=== PATIENT | female | born 1995 | race Two or more races ===

== ENCOUNTER 2019-04-04 19:51 | Observation (INO) | payer OTHER ==
[2019-04-04] MEDS ORDERED: Sodium Chloride 0.9% 10 ML Syringe FLUSH PRN (20:07)
[2019-04-04] MEDS ORDERED: Sodium Chloride 0.9% 2.5 ML Syringe FLUSH PRN (20:07)
[2019-04-04] MEDS ORDERED: Ondansetron 4 MG/2 ML SDV ONE (20:16)
--- NOTE | 2019-04-04 20:17 | EDM.PDOC ---
ED HPI GENERAL MEDICAL PROBLEM - General Chief Complaint: Gastrointestinal Problem Stated Complaint: PT HAS STOMACH PAIN Time Seen by Provider: 04/04/19 20:08 History Limitations: Reports: No Limitations - History of Present Illness INITIAL COMMENTS - FREE TEXT/NARRATIVE: HISTORY AND PHYSICAL: History of present illness: Patient is a 23-year-old female presents to the ED with complaint of vomiting and diarrhea. She states it started at 1pm this afternoon. She states has numerous episodes of non bloody emesis and diarrhea. She states prior to this starting she started having mid abdominal pain. She denies dysuria, hematuria, back pain. She also reports cough, sore throat, runny nose. She denies past medical or surgical history. LMP 03/31/19. Review of systems: As per history of present illness and below otherwise all systems reviewed and negative. Past medical history: As per history of present illness and as reviewed below otherwise noncontributory. Surgical history: As per history of present illness and as reviewed below otherwise noncontributory. Social history: No reported history of drug or alcohol abuse. Family history: As per history of present illness and as reviewed below otherwise noncontributory. Physical exam: General: Patient sitting comfortably in no acute distress and nontoxic appearing HEENT: Atraumatic, normocephalic, pupils reactive, negative for conjunctival pallor or scleral icterus, mucous membranes moist, throat clear, neck supple, nontender, trachea midline. No meningeal signs. Lungs: Clear to auscultation, breath sounds equal bilaterally, chest nontender. Heart: S1S2, regular, negative for clicks, rubs, or overt murmur. Abdomen: Mild periumbilical tenderness to palpation. Soft, nondistended. Negative for masses or hepatosplenomegaly. Negative for costovertebral tenderness. No rigidity, rebound, guarding. Pelvis: Stable nontender. Genitourinary: Deferred. Rectal: Deferred. Extremities: Atraumatic, negative for cords or calf pain. Neurovascular unremarkable. Neuro: Awake, alert, oriented. Cranial nerves II through XII unremarkable. Cerebellum unremarkable. Motor and sensory unremarkable throughout. Exam nonfocal. Notes: Discussed with Dr. Santos, he advised patient be admitted to medicine with surgery consult for colitis. Diagnostics: CBC, CMP, UA, urine hcg, lipase, CT abdomen/pelvis Therapeutics: 1L NS IV 4mg Zofran IV x 2 Levaquin IV Flagyl IV Prescriptions: Impression: Colitis, abdominal pain Plan: Discussed with Dr. Garcia, patient will be admitted to observation on IV antibiotics. Definitive disposition and diagnosis as appropriate pending reevaluation and review of above. Abdomen Pain Score (Numeric/FACES): 8 - Related Data Allergies Allergy/AdvReac Type Severity Reaction Status Date / Time No Known Allergies Allergy Verified 04/04/19 20:00 Home Meds: Home Meds . [No Known Home Meds] 04/04/19 [History] Past Medical History - Past Health History Medical/Surgical History: Denies Medical/Surgical History - Infectious Disease History Infectious Disease History: Reports: Chicken Pox Social & Family History - Family History Family Medical History: Noncontributory - Tobacco Use Smoking Status *Q: Never Smoker - Caffeine Use Caffeine Use: Reports: Coffee, Energy Drinks, Soda, Tea - Recreational Drug Use Recreational Drug Use: No ED ROS GENERAL - Review of Systems Review Of Systems: ROS reveals no pertinent complaints other than HPI. ED EXAM, GI/ABD - Physical Exam Exam: See Below (see dictation) Course - Vital Signs Last Recorded V/S: Last Vital Signs Temp 97.9 F 04/04/19 20:01 Pulse 118 H 04/04/19 22:00 Resp 16 04/04/19 22:00 BP 115/80 04/04/19 22:00 Pulse Ox 97 04/04/19 22:00 - Orders/Labs/Meds Orders: Active Orders 24 hr Category Date Time Status Sodium Chloride 0.9% [Saline Flush] Med 04/04/19 20:07 Active 10 ml FLUSH ASDIRECTED PRN Sodium Chloride 0.9% [Saline Flush] Med 04/04/19 20:07 Active 2.5 ml FLUSH ASDIRECTED PRN Saline Lock Insert [OM.PC] Stat Oth 04/04/19 20:07 Ordered Medication Orders Sodium Chloride (Saline Flush) 10 ml FLUSH ASDIRECTED PRN PRN Reason: Keep Vein Open Sodium Chloride (Saline Flush) 2.5 ml FLUSH ASDIRECTED PRN PRN Reason: Keep Vein Open Labs: Laboratory Tests 04/04/19 04/04/19 04/04/19 Range/Units 20:15 20:15 20:45 WBC 15.17 H (4.0-11.0) K/uL RBC 5.10 (4.30-5.90) M/uL Hgb 15.4 (12.0-16.0) g/dL Hct 45.9 (36.0-46.0) % MCV 90.0 (80.0-98.0) fL MCH 30.2 (27.0-32.0) pg MCHC 33.6 (31.0-37.0) g/dL RDW Std Deviation 46.8 (28.0-62.0) fl RDW Coeff of Emmanuelle 14 (11.0-15.0) % Plt Count 262 (150-400) K/uL MPV 9.70 (7.40-12.00) fL Neut % (Auto) 92.8 H (48.0-80.0) % Lymph % (Auto) 3.3 L (16.0-40.0) % Howell % (Auto) 2.6 (0.0-15.0) % Eos % (Auto) 1.2 (0.0-7.0) % Baso % (Auto) 0.1 (0.0-1.5) % Neut # (Auto) 14.1 H (1.4-5.7) K/uL Lymph # (Auto) 0.5 L (0.6-2.4) K/uL Howell # (Auto) 0.4 (0.0-0.8) K/uL Eos # (Auto) 0.2 (0.0-0.7) K/uL Baso # (Auto) 0.0 (0.0-0.1) K/uL Nucleated RBC % 0.0 /100WBC Nucleated RBCs # 0 K/uL Sodium 142 (136-145) mmol/L Potassium 4.3 (3.5-5.1) mmol/L Chloride 104 (98-107) mmol/L Carbon Dioxide 25.7 (21.0-32.0) mmol/L BUN 20 H (7.0-18.0) mg/dL Creatinine 1.0 (0.6-1.0) mg/dL Est Cr Clr Drug Dosing 81.91 mL/min Estimated GFR (MDRD) > 60.0 ml/min Glucose 139 H (74-106) mg/dL Calcium 10.1 (8.5-10.1) mg/dL Total Bilirubin 0.5 (0.2-1.0) mg/dL AST 19 (15-37) IU/L ALT 26 (14-63) IU/L Alkaline Phosphatase 64 (46-116) U/L Total Protein 8.9 H (6.4-8.2) g/dL Albumin 4.6 (3.4-5.0) g/dL Globulin 4.3 H (2.6-4.0) g/dL Albumin/Globulin Ratio 1.1 (0.9-1.6) Lipase 126 (73-393) U/L Urine Color YELLOW Urine Appearance SLT CLOUDY Urine pH 6.0 (5.0-8.0) Ur Specific [place] >= 1.030 (1.001-1.035) Urine Protein TRACE H (NEGATIVE) mg/dL Urine Glucose (UA) NEGATIVE (NEGATIVE) mg/dL Urine Ketones NEGATIVE (NEGATIVE) mg/dL Urine Occult Blood TRACE-INTACT H (NEGATIVE) Urine Nitrite NEGATIVE (NEGATIVE) Urine Bilirubin NEGATIVE (NEGATIVE) Urine Urobilinogen 0.2 (<2.0) EU/dL Ur Leukocyte Esterase NEGATIVE (NEGATIVE) Urine RBC 0-2 (0-2/HPF) Urine WBC 1-3 (0-5/HPF) Ur Epithelial Cells MANY (NONE-FEW) Urine Bacteria RARE (NEGATIVE) Urine Mucus HEAVY (NONE-MOD) Urine HCG, Qual (NEGATIVE) 04/04/19 Range/Units 20:45 WBC (4.0-11.0) K/uL RBC (4.30-5.90) M/uL Hgb (12.0-16.0) g/dL Hct (36.0-46.0) % MCV (80.0-98.0) fL MCH (27.0-32.0) pg MCHC (31.0-37.0) g/dL RDW Std Deviation (28.0-62.0) fl RDW Coeff of Emmanuelle (11.0-15.0) % Plt Count (150-400) K/uL MPV (7.40-12.00) fL Neut % (Auto) (48.0-80.0) % Lymph % (Auto) (16.0-40.0) % Howell % (Auto) (0.0-15.0) % Eos % (Auto) (0.0-7.0) % Baso % (Auto) (0.0-1.5) % Neut # (Auto) (1.4-5.7) K/uL Lymph # (Auto) (0.6-2.4) K/uL Howell # (Auto) (0.0-0.8) K/uL Eos # (Auto) (0.0-0.7) K/uL Baso # (Auto) (0.0-0.1) K/uL Nucleated RBC % /100WBC Nucleated RBCs # K/uL Sodium (136-145) mmol/L Potassium (3.5-5.1) mmol/L Chloride (98-107) mmol/L Carbon Dioxide (21.0-32.0) mmol/L BUN (7.0-18.0) mg/dL Creatinine (0.6-1.0) mg/dL Est Cr Clr Drug Dosing mL/min Estimated GFR (MDRD) ml/min Glucose (74-106) mg/dL Calcium (8.5-10.1) mg/dL Total Bilirubin (0.2-1.0) mg/dL AST (15-37) IU/L ALT (14-63) IU/L Alkaline Phosphatase (46-116) U/L Total Protein (6.4-8.2) g/dL Albumin (3.4-5.0) g/dL Globulin (2.6-4.0) g/dL Albumin/Globulin Ratio (0.9-1.6) Lipase (73-393) U/L Urine Color Urine Appearance Urine pH (5.0-8.0) Ur Specific [place] (1.001-1.035) Urine Protein (NEGATIVE) mg/dL Urine Glucose (UA) (NEGATIVE) mg/dL Urine Ketones (NEGATIVE) mg/dL Urine Occult Blood (NEGATIVE) Urine Nitrite (NEGATIVE) Urine Bilirubin (NEGATIVE) Urine Urobilinogen (<2.0) EU/dL Ur Leukocyte Esterase (NEGATIVE) Urine RBC (0-2/HPF) Urine WBC (0-5/HPF) Ur Epithelial Cells (NONE-FEW) Urine Bacteria (NEGATIVE) Urine Mucus (NONE-MOD) Urine HCG, Qual NEGATIVE (NEGATIVE) Meds: Medications Generic Name Dose Route Start Last Admin Trade Name Freq PRN Reason Stop Dose Admin Sodium Chloride 10 ml 09/14/19 20:07 Saline Flush FLUSH ASDIRECTED PRN Keep Vein Open Sodium Chloride 2.5 ml 04/04/19 20:07 Saline Flush FLUSH ASDIRECTED PRN Keep Vein Open Discontinued Medications Generic Name Dose Route Start Last Admin Trade Name Marvin PRN Reason Stop Dose Admin Sodium Chloride 1,000 mls @ 999 mls/hr 04/04/19 20:46 04/04/19 20:15 Normal Saline IV 04/04/19 21:46 999 mls/hr .BOLUS ONE Administration Iopamidol 94 ml 04/04/19 21:38 04/04/19 21:39 Isovue Multipack-370 (76%) IVPUSH 04/04/19 21:39 94 ml ONETIME ONE Administration Ondansetron HCl Confirm 04/04/19 20:16 04/04/19 20:49 Zofran Administered 04/04/19 20:17 Not Given Dose 4 mg .ROUTE .STK-MED ONE Ondansetron HCl 4 mg 04/04/19 20:46 04/04/19 20:15 Zofran IVPUSH 04/04/19 20:47 4 mg ONETIME ONE Administration Ondansetron HCl 4 mg 04/04/19 22:08 04/04/19 22:21 Zofran IVPUSH 04/04/19 22:09 4 mg ONETIME ONE Administration Departure - Departure Time of Disposition: 22:47 Disposition: Refer to Observation Condition: Good Clinical Impression: Colitis, Abdominal pain - Discharge Information Referrals: PCP,None [Primary Care Provider] - Forms: ED Department Discharge - My Orders Last 24 Hours: My Active Orders 04/04/19 20:07 Sodium Chloride 0.9% [Saline Flush] 10 ml FLUSH ASDIRECTED PRN Sodium Chloride 0.9% [Saline Flush] 2.5 ml FLUSH ASDIRECTED PRN Saline Lock Insert [OM.PC] Stat - Assessment/Plan Last 24 Hours: My Active Orders 04/04/19 20:07 Sodium Chloride 0.9% [Saline Flush] 10 ml FLUSH ASDIRECTED PRN Sodium Chloride 0.9% [Saline Flush] 2.5 ml FLUSH ASDIRECTED PRN Saline Lock Insert [OM.PC] Stat
[2019-04-04] MEDS ORDERED: Sodium Chloride 0.9% 1,000 ML IV ONE (20:46)
[2019-04-04] MEDS ORDERED: Ondansetron 4 MG/2 ML SDV IVPUSH ONE ×2 (20:46→22:08)
[2019-04-04 20:50] LABS: BLOOD UREA NITROGEN,BUN 20 mg/dL (7.0-18.0); CARBON DIOXIDE,CO2 25.7 mmol/L (21.0-32.0); CHLORIDE,CL 104 mmol/L (98-107); GLUCOSE RANDOM 139 mg/dL (74-106); LIPASE 126 U/L (73-393); POTASSIUM,K 4.3 mmol/L (3.5-5.1); SODIUM,NA 142 mmol/L (136-145)
[2019-04-04] MEDS ORDERED: Iopamidol 755 MG/ML 500 ML Multipack Bottle IVPUSH ONE (21:38)
--- NOTE | 2019-04-04 22:33 | CT ---
HISTORY: Abdominal pain. Vomiting. TECHNIQUE: CT abdomen and pelvis with IV contrast. COMPARISON: None. FINDINGS: Abdomen: No liver lesions. No bile duct dilation. No pancreatic mass or pancreatic duct dilation. No spleen lesions. No adrenal nodules. Kidneys enhance symmetrically. No renal mass. No hydronephrosis. No dilated bowel. Possible wall thickening of the mid transverse colon over approximately 6 cm segment. No pericolonic inflammatory change. No free fluid. Appendix is normal. No lymphadenopathy. Abdominal aorta is normal caliber. Pelvis: No lymphadenopathy. Musculoskeletal: Unremarkable. Lower chest: Unremarkable. IMPRESSION: 1. Possible segmental wall thickening of the transverse colon versus artifactual appearance due to under distention. No pericolonic inflammatory change. Correlate with bowel symptoms and consider follow-up CT with IV and oral contrast. 2. No acute abnormality in the abdomen or pelvis otherwise. 3. This report agrees with the preliminary report. Please note that all CT scans at this facility use dose modulation, iterative reconstruction, and/or weight-based dosing when appropriate to reduce radiation dose to as low as reasonably achievable. Dictated by Michele Valentine MD @ Apr 07 2019 10:16AM Signed by Dr. Michele Valentine @ Apr 07 2019 10:24AM
[2019-04-04] MEDS ORDERED: Levofloxacin/Dextrose 5%-Water 750 MG in Premix Bag 1 BAG IV ONE (22:47)
[2019-04-04] MEDS ORDERED: metroNIDAZOLE/Normal Saline 500 MG in Premix Bag 1 BAG IV ONE (22:48)
[2019-04-05] MEDS ORDERED: Ondansetron 4 MG/2 ML SDV IVPUSH PRN (00:05)
[2019-04-05] MEDS ORDERED: Ondansetron 4 MG/2 ML SDV ONE (00:16)
[2019-04-05] MEDS: Sodium Chloride 0.9% 1,000 ML IV SCH ×2 (03:36→10:29)
[2019-04-05 06:14] LABS: BLOOD UREA NITROGEN,BUN 17 mg/dL (7.0-18.0); CARBON DIOXIDE,CO2 22.2 mmol/L (21.0-32.0); CHLORIDE,CL 105 mmol/L (98-107); GLUCOSE RANDOM 124 mg/dL (74-106); POTASSIUM,K 3.3 mmol/L (3.5-5.1); SODIUM,NA 140 mmol/L (136-145)
[2019-04-05] MEDS: metroNIDAZOLE/Normal Saline 500 MG in Premix Bag 1 BAG IV SCH ×2 (09:28→13:41)
--- NOTE | 2019-04-05 11:27 | PCM.SN ---
- Free Text/Narrative Note: pt seen, chart reviewed; resolving colitis; would recommend a total of 7 days abx treatment, fu w primary care provider 1 - 2 wks; and colonoscopy w bx in 2 months; as always, thanks for the consult and care of this pleasant patient; [id number]
--- NOTE | 2019-04-05 11:51 | PCM.HP.2 ---
H&P History of Present Illness - General Date of Service: 04/05/19 Admit Problem/Dx: Admission Diagnosis/Problem Admission Diagnosis/Problem Colitis - History of Present Illness Initial Comments - Free Text/Narative: The patient is a 23 year-old female who presented with nausea, vomiting and diarrhea that started yesterday afternoon. The patient was reporting nonbloody , nonbilious vomiting and nonbloody diarrhea. This morning she reports she no longer has nausea, vomiting, diarrhea or abdominal pain. She was concerned because she had been eating farm food (eggs and pork) at her sister's. She reports her sister and nephew also have vomiting. She denies any fever, chills , chest pain, shortness of breath. In the ER, lab work showed an elevated white count of 15, no anemia, and lipase within normal limits. A CMP did not have any significant abnormalities. CT abdomen and pelvis showed thickened transverse colon. She started on Levaquin, Flagyl, Zofran and IV fluids in the ER. Abdomen Pain Score (Numeric/FACES): 8 - Related Data Allergies/Adverse Reactions: Allergies Allergy/AdvReac Type Severity Reaction Status Date / Time No Known Allergies Allergy Verified 04/05/19 01:14 Home Medications: Home Meds Levofloxacin [Levaquin] 750 mg PO DAILY 7 Days #7 tablet 04/05/19 [Rx] metroNIDAZOLE [Flagyl] 500 mg PO Q8H 7 Days #21 tab 04/05/19 [Rx] Past Medical History - Past Health History Medical/Surgical History: Denies Medical/Surgical History [facility] History: Reports: - Infectious Disease History Infectious Disease History: Reports: Chicken Pox Social & Family History - Family History Family Medical History: Noncontributory - Tobacco Use Smoking Status *Q: Never Smoker Second Hand Smoke Exposure: No - Caffeine Use Caffeine Use: Reports: Coffee, Energy Drinks, Soda - Recreational Drug Use Recreational Drug Use: No H&P Review of Systems - Review of Systems: Review Of Systems: See Below General: Reports: No Symptoms HEENT: Reports: No Symptoms Pulmonary: Reports: No Symptoms Cardiovascular: Reports: No Symptoms Gastrointestinal: Reports: Diarrhea, Nausea, Vomiting Genitourinary: Reports: No Symptoms Musculoskeletal: Reports: No Symptoms Skin: Reports: No Symptoms Psychiatric: Reports: No Symptoms Neurological: Reports: No Symptoms Hematologic/Lymphatic: Reports: No Symptoms Immunologic: Reports: No Symptoms Exam - Exam Exam: See Below - Vital Signs Vital Signs: Last Vital Signs Temp 98.7 F 04/05/19 08:00 Pulse 113 H 04/05/19 08:00 Resp 16 04/05/19 08:00 BP 98/52 L 04/05/19 08:00 Pulse Ox 95 04/05/19 08:00 Weight: 77.111 kg - Exam General: Alert, Oriented, Cooperative HEENT: Conjunctiva Clear, EOMI, Mucosa Moist & [place], Posterior Pharynx Clear, Pupils Equal, Pupils Reactive Lungs: Clear to Auscultation, Normal Respiratory Effort Cardiovascular: Regular Rate, Regular Rhythm GI/Abdominal Exam: Normal Bowel Sounds, Soft, Non-Tender, No Distention Extremities: No Pedal Edema Skin: Warm, Dry, Intact Neurological: Cranial Nerves Intact Neuro Extensive - Mental Status: Alert, Oriented x3 Psychiatric: Alert, Normal Affect, Normal Mood - Patient Data Lab Results Last 24 hrs: Laboratory Results - last 24 hr 04/04/19 04/04/19 04/04/19 Range/Units 20:15 20:15 20:45 WBC 15.17 H (4.0-11.0) K/uL RBC 5.10 (4.30-5.90) M/uL Hgb 15.4 (12.0-16.0) g/dL Hct 45.9 (36.0-46.0) % MCV 90.0 (80.0-98.0) fL MCH 30.2 (27.0-32.0) pg MCHC 33.6 (31.0-37.0) g/dL RDW Std Deviation 46.8 (28.0-62.0) fl RDW Coeff of Emmanuelle 14 (11.0-15.0) % Plt Count 262 (150-400) K/uL MPV 9.70 (7.40-12.00) fL Neut % (Auto) 92.8 H (48.0-80.0) % Lymph % (Auto) 3.3 L (16.0-40.0) % Jack % (Auto) 2.6 (0.0-15.0) % Eos % (Auto) 1.2 (0.0-7.0) % Baso % (Auto) 0.1 (0.0-1.5) % Neut # (Auto) 14.1 H (1.4-5.7) K/uL Lymph # (Auto) 0.5 L (0.6-2.4) K/uL Jack # (Auto) 0.4 (0.0-0.8) K/uL Eos # (Auto) 0.2 (0.0-0.7) K/uL Baso # (Auto) 0.0 (0.0-0.1) K/uL Nucleated RBC % 0.0 /100WBC Nucleated RBCs # 0 K/uL Sodium 142 (136-145) mmol/L Potassium 4.3 (3.5-5.1) mmol/L Chloride 104 (98-107) mmol/L Carbon Dioxide 25.7 (21.0-32.0) mmol/L BUN 20 H (7.0-18.0) mg/dL Creatinine 1.0 (0.6-1.0) mg/dL Est Cr Clr Drug Dosing 81.91 mL/min Estimated GFR (MDRD) > 60.0 ml/min Glucose 139 H (74-106) mg/dL Calcium 10.1 (8.5-10.1) mg/dL Total Bilirubin 0.5 (0.2-1.0) mg/dL AST 19 (15-37) IU/L ALT 26 (14-63) IU/L Alkaline Phosphatase 64 (46-116) U/L Total Protein 8.9 H (6.4-8.2) g/dL Albumin 4.6 (3.4-5.0) g/dL Globulin 4.3 H (2.6-4.0) g/dL Albumin/Globulin Ratio 1.1 (0.9-1.6) Lipase 126 (73-393) U/L Urine Color YELLOW Urine Appearance SLT CLOUDY Urine pH 6.0 (5.0-8.0) Ur Specific [place] >= 1.030 (1.001-1.035) Urine Protein TRACE H (NEGATIVE) mg/dL Urine Glucose (UA) NEGATIVE (NEGATIVE) mg/dL Urine Ketones NEGATIVE (NEGATIVE) mg/dL Urine Occult Blood TRACE-INTACT H (NEGATIVE) Urine Nitrite NEGATIVE (NEGATIVE) Urine Bilirubin NEGATIVE (NEGATIVE) Urine Urobilinogen 0.2 (<2.0) EU/dL Ur Leukocyte Esterase NEGATIVE (NEGATIVE) Urine RBC 0-2 (0-2/HPF) Urine WBC 1-3 (0-5/HPF) Ur Epithelial Cells MANY (NONE-FEW) Urine Bacteria RARE (NEGATIVE) Urine Mucus HEAVY (NONE-MOD) Urine HCG, Qual (NEGATIVE) 04/04/19 04/05/19 04/05/19 Range/Units 20:45 05:25 05:25 WBC 10.33 (4.0-11.0) K/uL RBC 4.37 (4.30-5.90) M/uL Hgb 12.9 (12.0-16.0) g/dL Hct 39.5 (36.0-46.0) % MCV 90.4 (80.0-98.0) fL MCH 29.5 (27.0-32.0) pg MCHC 32.7 (31.0-37.0) g/dL RDW Std Deviation 48.0 (28.0-62.0) fl RDW Coeff of Emmanuelle 15 (11.0-15.0) % Plt Count 238 (150-400) K/uL MPV 9.80 (7.40-12.00) fL Neut % (Auto) 94.5 H (48.0-80.0) % Lymph % (Auto) 3.1 L (16.0-40.0) % Jack % (Auto) 2.3 (0.0-15.0) % Eos % (Auto) 0.0 (0.0-7.0) % Baso % (Auto) 0.1 (0.0-1.5) % Neut # (Auto) 9.8 H (1.4-5.7) K/uL Lymph # (Auto) 0.3 L (0.6-2.4) K/uL Jack # (Auto) 0.2 (0.0-0.8) K/uL Eos # (Auto) 0.0 (0.0-0.7) K/uL Baso # (Auto) 0.0 (0.0-0.1) K/uL Nucleated RBC % 0.0 /100WBC Nucleated RBCs # 0 K/uL Sodium 140 (136-145) mmol/L Potassium 3.3 L (3.5-5.1) mmol/L Chloride 105 (98-107) mmol/L Carbon Dioxide 22.2 (21.0-32.0) mmol/L BUN 17 (7.0-18.0) mg/dL Creatinine 0.8 (0.6-1.0) mg/dL Est Cr Clr Drug Dosing 102.94 mL/min Estimated GFR (MDRD) > 60.0 ml/min Glucose 124 H (74-106) mg/dL Calcium 8.2 L (8.5-10.1) mg/dL Total Bilirubin 0.7 (0.2-1.0) mg/dL AST 14 L (15-37) IU/L ALT 19 (14-63) IU/L Alkaline Phosphatase 46 (46-116) U/L Total Protein 6.7 (6.4-8.2) g/dL Albumin 3.3 L (3.4-5.0) g/dL Globulin 3.4 (2.6-4.0) g/dL Albumin/Globulin Ratio 1.0 (0.9-1.6) Lipase (73-393) U/L Urine Color Urine Appearance Urine pH (5.0-8.0) Ur Specific [place] (1.001-1.035) Urine Protein (NEGATIVE) mg/dL Urine Glucose (UA) (NEGATIVE) mg/dL Urine Ketones (NEGATIVE) mg/dL Urine Occult Blood (NEGATIVE) Urine Nitrite (NEGATIVE) Urine Bilirubin (NEGATIVE) Urine Urobilinogen (<2.0) EU/dL Ur Leukocyte Esterase (NEGATIVE) Urine RBC (0-2/HPF) Urine WBC (0-5/HPF) Ur Epithelial Cells (NONE-FEW) Urine Bacteria (NEGATIVE) Urine Mucus (NONE-MOD) Urine HCG, Qual NEGATIVE (NEGATIVE) Result Diagrams: 04/05/19 05:25 04/05/19 05:25 Problem List Initiated/Reviewed/Updated: Yes Orders Last 24hrs: Active Orders 24 hr Category Date Time Status Admission Status [Patient Status] [ADT] Stat ADT 04/04/19 22:50 Active Intake and Output [RC] ASDIRECTED Care 04/05/19 10:27 Active Telemetry Monitoring [Cardiac Monitoring] [RC] Q8H Care 04/05/19 07:41 Active Vital Signs [RC] PER UNIT ROUTINE Care 04/05/19 10:27 Active Advance Diet Instructions [DIET] Diet 04/05/19 Lunch Active CDIFF TOX A+B [OP] Routine Lab 04/05/19 10:27 Ordered CULTURE STOOL + CAMPY+SHIGATOX [RM] Routine Lab 04/05/19 10:27 Ordered Levofloxacin/Dextrose 5%-Water [Levaquin in D5W 750 MG/ Med 04/05/19 21:00 Active 150 ML] 750 mg Premix Bag 1 bag IV Q24H Ondansetron [Zofran] Med 04/05/19 00:05 Active 4 mg IVPUSH Q4H PRN Sodium Chloride 0.9% [Normal Saline] 1,000 ml Med 04/05/19 00:15 Active IV ASDIRECTED Sodium Chloride 0.9% [Saline Flush] Med 04/04/19 20:07 Active 10 ml FLUSH ASDIRECTED PRN Sodium Chloride 0.9% [Saline Flush] Med 04/04/19 20:07 Active 2.5 ml FLUSH ASDIRECTED PRN metroNIDAZOLE/Normal Saline [Flagyl 500 MG in NS 100 ML Med 04/05/19 08:00 Active ] 500 mg Premix Bag 1 bag IV Q6H Isolation [COMM] Stat Oth 04/05/19 10:27 Ordered Saline Lock Insert [OM.PC] Stat Oth 04/04/19 20:07 Ordered Resuscitation Status Routine Resus Stat 04/05/19 10:27 Ordered Medication Orders Levofloxacin/Dextrose 750 mg/ (Premix) 150 mls @ 100 mls/hr IV Q24H [place] Metronidazole 500 mg/ Premix 100 mls @ 100 mls/hr IV Q6H [place] Last Admin: 04/05/19 09:28 Dose: 100 mls/hr Sodium Chloride (Normal Saline) 1,000 mls @ 125 mls/hr IV ASDIRECTED [place] Last Admin: 04/05/19 10:29 Dose: 125 mls/hr Infusion: 04/05/19 10:29 Dose: 125 mls/hr Admin: 04/05/19 03:36 Dose: 125 mls/hr Ondansetron HCl (Zofran) 4 mg IVPUSH Q4H PRN PRN Reason: Nausea Last Admin: 04/05/19 00:21 Dose: 4 mg Sodium Chloride (Saline Flush) 10 ml FLUSH ASDIRECTED PRN PRN Reason: Keep Vein Open Sodium Chloride (Saline Flush) 2.5 ml FLUSH ASDIRECTED PRN PRN Reason: Keep Vein Open Assessment/Plan Comment:: 1. Admit for observation 2. Code status- full 3. Vitals per routine 4. I/Os per routine 5. Diet- clear and advance as tolerated 6. DVT prophylaxis with SCD 7. Colitis- continue Levaquin and Flagyl, Continue IVF, advance diet as tolerated, stool studies if another episode of diarrhea. Was evaluated by general surgeon, who recommended discharge 7 day course of Levaquin and Flagyl with PCP follow up in 1-2 weeks and outpatient colonoscopy in 6 weeks time. 8. Tachycardia- likely secondary to dehydration- monitor on telemetry 9. Hypokalemia- replaced Patient was monitored on telemetry and tachycardia improved to HR of 90-100s. She was continued on IV antibiotics and her white count resolved, she was afebrile, no abdominal pain, and tolerating oral diet. She was evaluated by general surgery who cleared her for discharge with recommendations of outpatient antibiotics x 7 days and outpatient colonoscopy in 6 weeks. Patient will be discharged on Levaquin 750 mg daily and Flagyl 500 mg tid for 7 days. Stool studies were negative for Cdiff and Campylobacter, other studies were still pending at discharge. Patient was requesting discharge as she was feeling much better and eating per usual. She is traveling back to [place] in 2 days time. Usual diet as tolerated, activity as tolerated, symptoms to report to physician include fever/chills, chest pain, shortness of breath, abdominal pain, worsening diarrhea/vomiting, erythema, discharge, or not improving as expected. Follow up with PCP in 1-2 weeks and for colonoscopy in 6 weeks.
[2019-04-05] MEDS ORDERED: Potassium Chloride 20 MEQ Tab.ER PO ONE (13:58)
[2019-04-05] MEDS ORDERED: Acetaminophen 325 MG Tab PO PRN (14:10)
[2019-04-05] MEDS ORDERED: Levofloxacin/Dextrose 5%-Water 750 MG in Premix Bag 1 BAG IV SCH (21:00)
--- NOTE | 2019-04-06 13:43 | CONS ---
DATE OF CONSULTATION: 04/05/2019 DATE OF : 1995 PRIMARY CARE PHYSICIAN: None PCP REASON FOR CONSULTATION: Consult was called. The patient is seen shortly after. Concerning question is colitis. HISTORY OF PRESENT ILLNESS: The patient is a 23-year-old lady visiting from [place], complaining of 8-hour history of gradual onset of abdominal pain, and the patient remarked she has diarrhea for 2 days and also feeling nausea and vomiting. Denied coffee-ground emesis. Denied bright red blood per rectum. Denied black tarry stool. Denied prior episode and the patient remarked that the pain was around 7 on pain scale yesterday and right now, none. The patient sought help in the emergency room last night and got a CAT scan which showed transverse colon colitis of thickening. The patient was admitted to medical service and started on Levaquin and Flagyl, and this morning white count dropped from 15 to 10, and the patient was afebrile. Vital signs stable and abdominal pain, the patient remarks all resolved. FAMILY HISTORY: Noncontributory. ALLERGIES: Refer to nursing for details. HOME MEDICATIONS: Refer to nursing for details. REVIEW OF SYSTEMS: Same as history of present illness. PAST MEDICAL HISTORY: Significant for no diabetes, [place], CVA, or hypertension. PAST SURGICAL HISTORY: Normal vaginal delivery x1. SOCIAL HISTORY: The patient is a current day-to-day smoker and denies alcohol use. PHYSICAL EXAMINATION: GENERAL: A very pleasant lady, smiled to the doctor, and cooperating with examination. HEENT: Normocephalic and atraumatic. Sclerae anicteric. LUNGS: Clear to auscultation. HEART: Regular rate and rhythm. ABDOMEN: Soft, nondistended. No pulsating tender midline abdominal structure. No surgical scar. No hernia appreciated and is nontender. Normal bowel sounds in all 4 quadrants. LABORATORY DATA: White count is 10. IMPRESSION: Colitis by CAT scan in the proximal transverse colon. No hepatic flexure. The patient would benefit from 7-10 days of Levaquin and Flagyl, antibiotic treatment, oral IV, and follow up with primary care physician in 1-2 weeks and preferably have colonoscopy with biopsy in the area in about 6-8 weeks. The patient's pain has gone, number looks good. The patient is okay to discharge home per above instructions and her above plan. As always, thank you for the kind referral. LIDIA / MARIA ELENA /[id number]
== END 2019-04-05 18:00 | disposition home or self-care (01) ==
LOC: MW.ED 19:51 → MW.MS 22:50
PROVIDERS: ADMIT Internal Medicine; ATTEND Internal Medicine
DX: K52.9 Noninfective gastroenteritis and colitis, unspecified (principal); E87.6 Hypokalemia; R00.0 Tachycardia, unspecified
CPT/HCPCS: 36415; 74177; 80053; 81001; 81025; 83690; 85025; 87046; 87324; 96361; 96365; 96375; 96376; 99285; A9270; J1956; J2405; J3490; J7040; Q9967; 87899; 96366; 96367; G0378